=== PATIENT | female | born 1940 | race Caucasian/White ===

== ENCOUNTER 2017-02-02 16:06 | Emergency (ER) | payer SELFPAY ==
[~2017-02-02] VITALS: Ht 152.4 cm; Wt 63.0 kg
[2017-02-02 16:33] LABS: HEMATOCRIT 40.4 % (37.0-47.0); HEMOGLOBIN 13.4 g/dl (12.0-16.0); IMMATURE GRANULOCYTES 0.3 % (0.0-1.0); MEAN CELL VOLUME 88.8 fL CALC (80.0-100.0); MEAN CORPUSCULAR HGB 29.5 pG CALC (26.0-32.0); MEAN CORPUSCULAR HGB CONC 33.2 g/L CALC (32.0-36.0); NEUT# 7.34 thou/uL (2.00-7.15); RED BLOOD COUNT 4.55 mill/uL (4.20-5.60); RED CELL DISTRI WIDTH 12.6 % (11.5-15.5)
[2017-02-02 16:34] LABS: URINE BILIRUBIN - DIPSTICK NEGATIVE (NEGATIVE); URINE BLOOD DIPSTICK TRACE-INTACT (NEGATIVE); URINE CLARITY CLEAR; URINE COLOR YELLOW; URINE GLUCOSE - DIPSTICK NEGATIVE (NEGATIVE); URINE KETONE 15 mg/dL (NEGATIVE); URINE LEUK ESTERASE NEGATIVE (NEGATIVE); URINE NITRITE - DIPSTICK NEGATIVE (Negative); URINE PROTEIN - DIPSTICK NEGATIVE (NEG-TRACE); URINE SPECIFIC GRAVITY 1.015; URINE UROBILINOGEN - DIPSTICK 0.2 E.U./dL (0.2)
[2017-02-02 16:45] LABS: ALBUMIN 4.7 g/dL (3.2-5.0); ALKALINE PHOSPHATASE 96 u/l (38-126); ANION GAP 16 (6-22 (CALC)); BILIRUBIN, TOTAL 0.7 mg/dL (0.0-1.4); BUN 8 mg/dL (8-23); BUN/CREATININE RATIO 15 (12-20 (CALC)); CALCIUM 9.6 mg/dL (8.4-10.2); CARBON DIOXIDE 30 mmol/l (22-30); CHLORIDE 104 mmol/l (95-108); CREATININE 0.6 mg/dL (0.5-1.0); GFR > 60 ML/MIN (>=60 (CALC)); GFR FOR AFR.AMER. > 60 ML/MIN (>=60 (CALC)); GLUCOSE 111 mg/dL (82-115); POTASSIUM 3.4 mmol/l (3.5-5.1); SGOT/AST 34 u/l (9-36); SGPT/ALT 33 u/l (11-66); SODIUM 146 mmol/l (137-146)
[2017-02-02 16:57] LABS: MYOGLOBIN 36 ng/mL (0 - 62)
[2017-02-02] MEDS ORDERED: ABILIFY2 MG PO (17:24)
[2017-02-02] MEDS ORDERED: MIRTAZAPINE15 MG PO (17:25)
[2017-02-03 00:31] VITALS: BP 192/82
== END 2017-02-03 00:31 | disposition home or self-care (01) | DRG 204 ==
LOC: ED 16:06
PROVIDERS: Emergency Medicine
DX: R06.00 Dyspnea, unspecified (principal); F22 Delusional disorders; J98.11 Atelectasis; R09.02 Hypoxemia; N28.1 Cyst of kidney, acquired; E04.1 Nontoxic single thyroid nodule

== ENCOUNTER → 2017-12-04 | Outpatient (REF) | payer MEDICARE ==
[~2017-12-04] MED LIST: ABILIFY2 MG PO; MIRTAZAPINE15 MG PO; RISPERDAL M0.5 MG PO
[2017-12-04 10:37] LABS: HEMATOCRIT 36.7 % (37.0-47.0); HEMOGLOBIN 11.8 g/dl (12.0-16.0); IMMATURE GRANULOCYTES 0.4 % (0.0-5.0); MEAN CORPUSCULAR HGB 28.9 pG CALC (26.0-32.0); MEAN CORPUSCULAR HGB CONC 32.2 g/L CALC (32.0-36.0); NEUT# 6.51 thou/uL (2.00-7.15); RED BLOOD COUNT 4.08 mill/uL (4.20-5.60); RED CELL DISTRI WIDTH 13.1 % (11.5-15.5)
[2017-12-04 10:49] LABS: ALBUMIN 4.3 g/dL (3.2-5.0); BILIRUBIN, TOTAL 0.5 mg/dL (0.0-1.4); CREATININE 1.5 mg/dL (0.5-1.0); POTASSIUM 4.4 mmol/l (3.5-5.1); TOTAL PROTEIN 7.4 g/dL (6.3-8.2)
== END | disposition home or self-care (01) ==
LOC: LAB 10:00
PROVIDERS: ATTEND Internal Medicine Geriatric Medicine
DX: I10 Essential (primary) hypertension (principal)

== ENCOUNTER 2017-12-08 21:59 | Observation (INO) | payer MEDICARE ==
[~2017-12-08] VITALS: Ht 152.4 cm; Wt 57.7 kg
[~2017-12-08 21:59] MED LIST changes: -RISPERDAL M0.5 MG PO
--- NOTE | 2017-12-08 22:58 | NUR ---
DR CARRERO AT BEDSIDE AND NOW ON PHONE WITH DAUGHTER, HEATH, TO DISCUSS PT'S CONDITIONS. PT WAS TALKING ABOUT HEARING VOICES...ETC.
--- NOTE | 2017-12-08 23:21 | NUR ---
LAB AT BEDSIDE TO COLLECT LABS.
[2017-12-08 23:33] LABS: HEMATOCRIT 33.6 % (37.0-47.0); HEMOGLOBIN 11.1 g/dl (12.0-16.0); IMMATURE GRANULOCYTES 0.2 % (0.0-5.0); MEAN CELL VOLUME 89.1 fL CALC (80.0-100.0); MEAN CORPUSCULAR HGB 29.4 pG CALC (26.0-32.0); NEUT# 5.35 thou/uL (2.00-7.15); RED BLOOD COUNT 3.77 mill/uL (4.20-5.60); RED CELL DISTRI WIDTH 12.7 % (11.5-15.5)
--- NOTE | 2017-12-08 23:43 | NUR ---
TO CT VIA W/C. PT RELUCTANT TO TAKE RESTORIL SHE DOESN'T TRUST US.
[2017-12-08 23:48] LABS: ALBUMIN 4.1 g/dL (3.2-5.0); BILIRUBIN, TOTAL 0.3 mg/dL (0.0-1.4); CREATININE 1.1 mg/dL (0.5-1.0); POTASSIUM 3.8 mmol/l (3.5-5.1); TOTAL PROTEIN 7.2 g/dL (6.3-8.2)
--- NOTE | 2017-12-09 00:03 | NUR ---
RETURNED FROM CT VIA W/C.
--- NOTE | 2017-12-09 01:22 | NUR ---
report to Isidro
--- NOTE | 2017-12-09 01:30 | NUR ---
PT TO FLOOR VIA STRETCHER AFTER REMOVING SHIRT AND BRA AND SHOES AND PLACED PATIENT IN GOWN. PT SLEEPING. REMAINED ASLEEP WHILE CHANGING
--- NOTE | 2017-12-09 01:35 | NUR ---
PT ARRIVED TO THE FLOOR IN STABLE CONDITION. PT APPEARS TO BE ASLEEP. NO APPARENT ACUTE DISTRESS NOTED. PT OPENED EYES AND RESPONDS TO VERBAL COMMANDS. PT SETTLED TO BE. BED IN LOW POSITION AND CALL LIGHT IN REACH.
--- NOTE | 2017-12-09 01:46 | NUR ---
PT RECEIVED 30MG OR RESTROIL AT 2343 IN THE ED. PT IS NOT ALERT ENOUGH FOR ASSESSMENT TO BE COMPLETED. WILL CONTINUE TO MONITOR PT. ASSESSMENT TO BE COMPLETED WHEN PT IS AWAKE AND ALERT.
[2017-12-09 01:47] VITALS: BP 138/69
[2017-12-09 04:27] VITALS: BP 123/65
--- NOTE | 2017-12-09 05:00 | NUR ---
PT SLEEPING WITH EYES CLOSED. RESPIRATION EVEN AND NON-LABORED. NO APPARENT ACUTE CHANGES NOTED IN PT'S CONDITION.
[2017-12-09 07:20] VITALS: BP 143/67
--- NOTE | 2017-12-09 07:20 | NUR ---
ASSESSMENT IS COMPLETED: IV SITE IS FREE FROM REDNESS OR EDEMA. HR IS REG, PULSES ARE STRONG X4, ABD IS SOFT WITH ACTIVE BS. BREATH SOUNDS ARE CLEAR, BILATERALLY. TELE MONITOR IN PLACE.
--- NOTE | 2017-12-09 12:30 | NUR ---
PT IS RELAXING IN BED WITH NO DISTRESS NOTED. IV SITE IS FREE FROM REDNESS OR EDEMA. CONTINUE TO OBSERVE AND MONITOR. FAMILY CHECKED ON PT SHE WAS RESTING WITH EYES CLOSED.
[2017-12-09 15:45] VITALS: BP 105/65
--- NOTE | 2017-12-09 16:30 | NUR ---
PT IS AWAKE AND ATE A SMALL SNACK. IV SITE IS FREE FROM REDNESS OR EDEMA. CONTINUE TO OBSERVE AND MONITOR.
--- NOTE | 2017-12-09 18:50 | NUR ---
RECEIVED CHANGE OF SHIFT REPORT FROM CHARLIE BECKFORD. PT ALERT AND ORIETED AND LYING IN BED WITH EYES CLOSED. AWOKE TO NAME. NO APPARENT ACUTE DISTRESS NOTED. PT STATED SHE WORKED AT [employer] FOR 40 YEARS THEN AT [employer] FOR ABOUT 4 YEARS. WILL CONTINUE TO MONITOR.
[2017-12-09 20:00] VITALS: BP 107/69
--- NOTE | 2017-12-10 | NUR ---
PT RESTING QUIETLY IN BED. NO APPARENT ACUTE DISTRESS NOTED.
[2017-12-10 04:00] VITALS: BP 113/65
--- NOTE | 2017-12-10 04:18 | NUR ---
PT SLEPT WELL DURING THE NIGHT. NO APPARENT ACUTE CHANGES NOTED I PT'S CONDITION.
[2017-12-10 05:31] LABS: HEMATOCRIT 33.7 % (37.0-47.0); HEMOGLOBIN 11.1 g/dl (12.0-16.0); IMMATURE GRANULOCYTES 0.3 % (0.0-5.0); MEAN CELL VOLUME 89.9 fL CALC (80.0-100.0); MEAN CORPUSCULAR HGB 29.6 pG CALC (26.0-32.0); MEAN CORPUSCULAR HGB CONC 32.9 g/L CALC (32.0-36.0); NEUT# 4.95 thou/uL (2.00-7.15); RED BLOOD COUNT 3.75 mill/uL (4.20-5.60); RED CELL DISTRI WIDTH 12.8 % (11.5-15.5)
[2017-12-10 05:41] LABS: ALBUMIN 3.6 g/dL (3.2-5.0); ALKALINE PHOSPHATASE 69 u/l (38-126); ANION GAP 11 (6-22 (CALC)); BILIRUBIN, TOTAL 0.3 mg/dL (0.0-1.4); BUN 20 mg/dL (8-23); BUN/CREATININE RATIO 21 (12-20 (CALC)); CARBON DIOXIDE 30 mmol/l (22-30); CHLORIDE 105 mmol/l (95-108); GFR 54 ML/MIN (>=60 (CALC)); GFR FOR AFR.AMER. > 60 ML/MIN (>=60 (CALC)); POTASSIUM 3.9 mmol/l (3.5-5.1); SGOT/AST 21 u/l (9-36); SODIUM 142 mmol/l (137-146); TOTAL PROTEIN 6.3 g/dL (6.3-8.2)
[2017-12-10 07:40] VITALS: BP 147/64
--- NOTE | 2017-12-10 07:40 | NUR ---
ASSESSMENT IS COMPLETED: IV SITE IS FREE FROM REDNESS OR EDEMA. HR IS REG,PULSES ARE STRONG X4, ABD IS SOFT WITH ACTIVE BS. BREATH SOUNDS ARE CLEAR, BILATERALLY. CONTINUE TO OSBERVE AND MONITOR.
[2017-12-10 08:09] LABS: URINE BILIRUBIN - DIPSTICK NEGATIVE (NEGATIVE); URINE COLOR YELLOW; URINE GLUCOSE - DIPSTICK NEGATIVE (NEGATIVE); URINE KETONE NEGATIVE (NEGATIVE); URINE LEUK ESTERASE LARGE (NEGATIVE); URINE NITRITE - DIPSTICK NEGATIVE (Negative); URINE PH 5.5 (4.5-8.0); URINE PROTEIN - DIPSTICK NEGATIVE (NEG-TRACE); URINE UROBILINOGEN - DIPSTICK 0.2 E.U./dL (0.2)
[2017-12-10 08:10] LABS: URINE CLARITY HAZY
[2017-12-10 08:16] LABS: URINE BLOOD DIPSTICK NEGATIVE (NEGATIVE)
[2017-12-10 08:18] LABS: URINE BACTERIA RARE hpf; URINE EPITHELIAL CELLS FEW EPI/hpf (0-FEW)
[2017-12-10] MEDS ORDERED: RISPERDAL M0.5 MG PO (08:55)
[2017-12-10 09:08] VITALS: BP 147/64
--- NOTE | 2017-12-10 10:41 | NUR ---
FAMILY CAME TO MEMBERSHIP COUNSELOR PT. IV SITE DISCONTINEUD CATHETER INTACT. NO REDNESS OR EDEMA. NOTED. DISCHARGE INSTRUCTIONS GIVEN AND VERBALIZED UNDERSTANDING.
== END 2017-12-10 10:28 | disposition home or self-care (01) ==
LOC: ED 21:59 → ED-I 12-09 00:20 → ED 12-09 00:53 → MS2 12-09 00:56
PROVIDERS: Emergency Medicine; ADMIT Internal Medicine Geriatric Medicine; ATTEND Internal Medicine Geriatric Medicine
DX: F29 Unspecified psychosis not due to a substance or known physiological condition (principal); F25.9 Schizoaffective disorder, unspecified; I10 Essential (primary) hypertension; F41.1 Generalized anxiety disorder; F32.9 Major depressive disorder, single episode, unspecified; F03.90 Unspecified dementia, unspecified severity, without behavioral disturbance, psychotic disturbance, mood disturbance, and anxiety; K21.9 Gastro-esophageal reflux disease without esophagitis; M19.90 Unspecified osteoarthritis, unspecified site

== ENCOUNTER 2018-05-07 08:14 | Emergency (ER) | payer MEDICARE ==
[~2018-05-07] VITALS: Ht 152.4 cm; Wt 51.0 kg
[~2018-05-07 08:14] MED LIST changes: +RISPERDAL M0.5 MG PO
[2018-05-07] MEDS ORDERED: METOPROL TAR25 MG PO (08:33)
[2018-05-07] MEDS ORDERED: MIRTAZAPINE15 MG PO (08:33)
[2018-05-07] MEDS ORDERED: IBUPROFEN200 MG PO (08:34)
[2018-05-07 09:17] VITALS: BP 181/83
== END 2018-05-07 09:25 | disposition home or self-care (01) ==
LOC: ED 08:14
DX: S00.03XA Contusion of scalp, initial encounter (principal); W01.198A Fall on same level from slipping, tripping and stumbling with subsequent striking against other object, initial encounter; Y92.009 Unspecified place in unspecified non-institutional (private) residence as the place of occurrence of the external cause

== ENCOUNTER 2020-07-05 14:41 | Emergency (ER) | payer MEDICARE ==
[~2020-07-05 14:41] MED LIST changes: +IBUPROFEN200 MG PO; +METOPROL TAR25 MG PO
[2020-07-05 16:54] VITALS: BP 125/76
== END 2020-07-05 16:54 | disposition home or self-care (01) ==
LOC: ED 14:41
DX: S00.81XA Abrasion of other part of head, initial encounter (principal); S80.211A Abrasion, right knee, initial encounter; I10 Essential (primary) hypertension; F03.90 Unspecified dementia, unspecified severity, without behavioral disturbance, psychotic disturbance, mood disturbance, and anxiety; F31.9 Bipolar disorder, unspecified; W18.39XA Other fall on same level, initial encounter; Y92.002 Bathroom of unspecified non-institutional (private) residence as the place of occurrence of the external cause

== ENCOUNTER 2022-02-24 23:50 | Emergency (ER) | payer MEDICARE, MEDICAID ==
[~2022-02-24] VITALS: Ht 152.4 cm; Wt 60.0 kg
[2022-02-25 02:00] VITALS: BP 135/63
[2022-02-25 02:30] VITALS: BP 135/63
== END 2022-02-25 02:30 | disposition home or self-care (01) ==
LOC: ED 23:50
DX: D49.2 Neoplasm of unspecified behavior of bone, soft tissue, and skin (principal); I10 Essential (primary) hypertension; F31.9 Bipolar disorder, unspecified; F03.90 Unspecified dementia, unspecified severity, without behavioral disturbance, psychotic disturbance, mood disturbance, and anxiety

== ENCOUNTER 2023-10-23 10:27 | Inpatient (IN) | payer MEDICARE, MEDICAID ==
[2023-10-23] VITALS (47 sets, daily range): BP systolic 98–165; BP diastolic 45–110
[~2023-10-23] VITALS: Ht 152.4 cm; Wt 40.2 kg
[2023-10-23] MEDS ORDERED: SODIUM CHLORIDE 0.9% 1,000 ML IV ONE (10:30)
[2023-10-23] MEDS ORDERED: Levofloxacin 750 mg Premix 150 ML IV ONE (10:40)
[2023-10-23 10:52] LABS: URINE BILIRUBIN - DIPSTICK Negative (NEGATIVE); URINE BLOOD DIPSTICK Moderate (NEGATIVE); URINE GLUCOSE - DIPSTICK Negative (NEGATIVE); URINE KETONE Trace mg/dL (NEGATIVE); URINE LEUK ESTERASE Negative (NEGATIVE); URINE NITRITE - DIPSTICK Negative (Negative); URINE PH 5.5 (4.5-8.0); URINE PROTEIN - DIPSTICK 100 mg/dL (NEG-TRACE); URINE UROBILINOGEN - DIPSTICK 0.2 E.U./dL (0.2)
[2023-10-23 10:54] LABS: URINE COLOR Yellow
[2023-10-23 10:59] LABS: URINE RBC 0-2 RBC/hpf (0-5)
[2023-10-23 11:00] LABS: URINE CASTS MANY lpf (NONE-RARE)
[2023-10-23 11:17] LABS: BASO% 0.1 % (0-3); HEMOGLOBIN 13.1 g/dl (12.0-16.0); IMMATURE GRANULOCYTES 1.1 % (0.0-5.0); LYMPH% 6.3 % (15-41); MEAN CELL VOLUME 89.7 fL CALC (80.0-100.0); MEAN CORPUSCULAR HGB 28.7 pG CALC (26.0-32.0); MONO% 3.8 % (2-13); NEUT# 14.62 thou/uL (2.00-7.15); NEUT% 88.7 % (42-76); RED BLOOD COUNT 4.57 mill/uL (4.20-5.60); RED CELL DISTRI WIDTH 14.7 % (11.5-15.5)
[2023-10-23 12:29] LABS: ALBUMIN 3.4 g/dL (3.2-5.0); CREATININE 1.5 mg/dL (0.5-1.0); MAGNESIUM 2.3 mg/dL (1.6-2.3); POTASSIUM 3.4 mmol/l (3.5-5.1); TOTAL PROTEIN 6.7 g/dL (6.3-8.2)
[2023-10-23] MEDS ORDERED: SODIUM CHLORIDE 0.9% 500 ML IV ONE ×2 (13:55→16:50)
[2023-10-23] MEDS ORDERED: DILTIAZEM HCL 125 MG in SODIUM CHLORIDE 0.9% 100 ML IV ONE (13:55)
[2023-10-23] MEDS ORDERED: DILTIAZEM HCL 25 MG/5 ML SDV IV ONE (13:55)
[2023-10-23] MEDS ORDERED: DEXAMETHASONE SOD. PHOSPHATE 10 MG/ML VIAL IV ONE (15:30)
[2023-10-23] MEDS ORDERED: SODIUM CHLORIDE 0.9% 1,000 ML IV PRN (16:40)
[2023-10-23] MEDS ORDERED: MAGNESIUM HYDROXIDE 30 ML UDC PO PRN (16:40)
[2023-10-23] MEDS ORDERED: ACETAMINOPHEN 325 MG/TAB PO PRN (16:40)
[2023-10-23] MEDS ORDERED: DILTIAZEM HCL 125 MG in SODIUM CHLORIDE 0.9% 100 ML IV PRN (16:50)
[2023-10-23] MEDS ORDERED: AZITHROMYCIN 500 MG in SODIUM CHLORIDE 0.9% 250 ML IV SCH (18:00)
[2023-10-23] MEDS ORDERED: ALBUTEROL SULFATE 8 GM INH IN SCH (19:00)
[2023-10-23] MEDS ORDERED: cefTRIAXone SODIUM 2 GM in SODIUM CHLORIDE 0.9% 100 ML IV SCH (20:00)
[2023-10-23] MEDS ORDERED: [UNRECOGNIZED DRUG - REMARK] PO PRN (20:20)
[2023-10-23] MEDS ORDERED: Heparin SODIUM (Porcine) 5,000 UNITS/ML SDV SC SCH (22:00)
[2023-10-24] VITALS (27 sets, daily range): BP systolic 90–177; BP diastolic 46–115
[2023-10-24 06:01] LABS: IMMATURE GRANULOCYTES 4.6 % (0.0-5.0); LYMPH% 7.8 % (15-41); MEAN CELL VOLUME 91.4 fL CALC (80.0-100.0); MEAN CORPUSCULAR HGB 29.1 pG CALC (26.0-32.0); MEAN CORPUSCULAR HGB CONC 31.9 g/dL CAL (32.0-36.0); MONO% 4.2 % (2-13); NEUT# 10.61 thou/uL (2.00-7.15); NEUT% 83.4 % (42-76); RED BLOOD COUNT 3.5 mill/uL (4.20-5.60); RED CELL DISTRI WIDTH 14.9 % (11.5-15.5)
[2023-10-24 06:14] LABS: BILIRUBIN, TOTAL 0.6 mg/dL (0.02-1.3); CREATININE 1.2 mg/dL (0.5-1.0); POTASSIUM 2.9 mmol/l (3.5-5.1)
[2023-10-24 06:17] LABS: HEMOGLOBIN 10.2 g/dl (12.0-16.0)
[2023-10-24 06:24] LABS: ALBUMIN 2.3 g/dL (3.2-5.0); CHOLESTEROL HDL RATIO 5.8 (<4.4 (CALC)); TOTAL PROTEIN 4.7 g/dL (6.3-8.2)
[2023-10-24] MEDS ORDERED: D5 1/2 NaCL W/KCL 40MEQ 1,000 ML IV PRN (06:50)
[2023-10-24] MEDS ORDERED: D5 1/2 NaCL W/KCL 20MEQ 1,000 ML IV PRN (06:50)
[2023-10-24] MEDS ORDERED: ALBUTEROL SULFATE 8 GM INH IN SCH (07:00)
[2023-10-24] MEDS ORDERED: cefTRIAXone SODIUM 2 GM in SODIUM CHLORIDE 0.9% 100 ML IV SCH ×2 (08:00→20:00)
[2023-10-24] MEDS ORDERED: POTASSIUM CHLORIDE 20MEQ 100 ML IV SCH ×3 (08:30→10:30)
[2023-10-24] MEDS ORDERED: TIOTROPIUM BROMIDE MONOHYDRATE 2.5 MCG/ACT 4 GM INH IN SCH (09:00)
[2023-10-24] MEDS ORDERED: REMDESIVIR 200 MG in SODIUM CHLORIDE 0.9% 210 ML IV SCH (09:00)
[2023-10-24] MEDS ORDERED: DEXAMETHASONE SOD. PHOSPHATE 10 MG/ML VIAL IV SCH (09:00)
[2023-10-24] MEDS ORDERED: POTASSIUM CHLORIDE 20 MEQ in DEXTROSE 5% 1,000 ML IV PRN (11:20)
[2023-10-24] MEDS ORDERED: AZITHROMYCIN 500 MG in SODIUM CHLORIDE 0.9% 250 ML IV SCH (16:00)
[2023-10-24 17:20] LABS: HEMATOCRIT 34.7 % (37.0-47.0); HEMOGLOBIN 11.3 g/dl (12.0-16.0); MEAN CELL VOLUME 90.6 fL CALC (80.0-100.0); MEAN CORPUSCULAR HGB 29.5 pG CALC (26.0-32.0); MEAN CORPUSCULAR HGB CONC 32.6 g/dL CAL (32.0-36.0); RED BLOOD COUNT 3.83 mill/uL (4.20-5.60); RED CELL DISTRI WIDTH 15.1 % (11.5-15.5)
[2023-10-24 18:07] LABS: POTASSIUM 3.5 mmol/l (3.5-5.1)
[2023-10-25] VITALS (17 sets, daily range): BP systolic 111–163; BP diastolic 60–96
[2023-10-25] MEDS ORDERED: hydrALAZINE HCL 20 MG/ML VIAL(1 ML) IV PRN (05:00)
[2023-10-25 05:05] LABS: BASO% 0.1 % (0-3); HEMATOCRIT 30.4 % (37.0-47.0); HEMOGLOBIN 10.1 g/dl (12.0-16.0); LYMPH% 5.7 % (15-41); MEAN CELL VOLUME 89.4 fL CALC (80.0-100.0); MEAN CORPUSCULAR HGB 29.7 pG CALC (26.0-32.0); MEAN CORPUSCULAR HGB CONC 33.2 g/dL CAL (32.0-36.0); MONO% 7.7 % (2-13); NEUT# 7.13 thou/uL (2.00-7.15); NEUT% 78.7 % (42-76); RED BLOOD COUNT 3.4 mill/uL (4.20-5.60)
[2023-10-25] MEDS ORDERED: CLARIFY DOSE IV PRN (05:15)
[2023-10-25 05:33] LABS: ALBUMIN 2.2 g/dL (3.2-5.0); CREATININE 0.9 mg/dL (0.5-1.0); MAGNESIUM 1.6 mg/dL (1.6-2.3); POTASSIUM 3.4 mmol/l (3.5-5.1); TOTAL PROTEIN 4.7 g/dL (6.3-8.2)
[2023-10-25 05:40] LABS: IMMATURE GRANULOCYTES 7.8 % (0.0-5.0)
[2023-10-25 05:45] LABS: BILIRUBIN, TOTAL 0.3 mg/dL (0.02-1.3)
[2023-10-25] MEDS ORDERED: HALOPERIDOL LACTATE 5 MG/ML SDV IV PRN (06:00)
[2023-10-25] MEDS ORDERED: REMDESIVIR 100 MG in SODIUM CHLORIDE 0.9% 230 ML IV SCH (14:00)
== END 2023-10-25 16:40 | disposition hospice, inpatient (51) | DRG 177 ==
LOC: ED 10:27 → ED-I 16:00 → ED 16:34 → ICU 16:35
PROVIDERS: Family Medicine; ADMIT Student in an Organized Health Care Education/Training Program; ATTEND Student in an Organized Health Care Education/Training Program
PROC: 02HV33Z Insertion of Infusion Device into Superior Vena Cava, Percutaneous Approach (ICD-10-PCS; principal; 2023-10-23)
PROC: XW043E5 Introduction of Remdesivir Anti-infective into Central Vein, Percutaneous Approach, New Technology Group 5 (ICD-10-PCS; 2023-10-23)
DX: U07.1 COVID-19 (principal); J12.82 Pneumonia due to coronavirus disease 2019; J96.01 Acute respiratory failure with hypoxia; J15.9 Unspecified bacterial pneumonia; R64 Cachexia; Z68.1 Body mass index [BMI] 19.9 or less, adult; N17.9 Acute kidney failure, unspecified; C64.2 Malignant neoplasm of left kidney, except renal pelvis; E46 Unspecified protein-calorie malnutrition; E87.1 Hypo-osmolality and hyponatremia; E87.20 Acidosis, unspecified; E86.0 Dehydration; E86.9 Volume depletion, unspecified; E87.6 Hypokalemia; L89.150 Pressure ulcer of sacral region, unstageable; I48.91 Unspecified atrial fibrillation; L57.0 Actinic keratosis; L98.9 Disorder of the skin and subcutaneous tissue, unspecified; N18.31 Chronic kidney disease, stage 3a; D64.9 Anemia, unspecified; F03.90 Unspecified dementia, unspecified severity, without behavioral disturbance, psychotic disturbance, mood disturbance, and anxiety; F20.9 Schizophrenia, unspecified; F31.9 Bipolar disorder, unspecified; Z85.828 Personal history of other malignant neoplasm of skin; Z51.5 Encounter for palliative care; Z66 Do not resuscitate
CPT/HCPCS: Q9967